=== PATIENT | female | born 1995 | race Caucasian/White ===

== ENCOUNTER 2024-03-14 09:04 | Inpatient (IN) | payer OTHER ==
[2024-03-14 09:54] VITALS: BMI 33.7
[2024-03-14] MEDS: ELECTROLYTE-148 SOLN 1,000 ML IV SCH (10:15)
[2024-03-14 10:38] LABS: BASO % 0.3 % (0-2.0); EOS % 1.4 % (0-4.5); HEMATOCRIT 38.9 % (32.4-45.2); HEMOGLOBIN 13.5 GM/dL (10.7-15.3); MCH 32.3 pg (25.7-33.7); MCHC 34.7 g/dl (32.0-36.0); MEAN CELL VOLUME 93.2 fl (80-96); MEAN PLT VOLUME 9.3 fl (7.5-11.1); MONO % 7.8 % (3.8-10.2); NEUT % 63.5 % (42.8-82.8); PLATELET COUNT 245 10^3/uL (134-434); RBC 4.17 M/mm3 (3.60-5.2); WHITE BLOOD COUNT 9.2 K/mm3 (4.0-10.0)
[2024-03-14 10:53] LABS: INR 0.89 (0.83-1.09); PROTHROMBIN TIME (PATIENT) 10.1 SEC (9.7-13.0)
[2024-03-14 10:55] LABS: ACTIVATED PTT 29.3 SECONDS (25.2-36.5); POTASSIUM 3.9 mmol/L (3.5-5.1)
[2024-03-14 10:56] LABS: CALCIUM 8.9 mg/dL (8.5-10.1)
[2024-03-14 10:57] LABS: BLOOD UREA NITROGEN 11.1 mg/dL (7-18)
[2024-03-14 11:00] LABS: CREATININE 0.4 mg/dL (0.55-1.3)
[2024-03-14] MEDS: MISOPROSTOL 25 MCG TABLET (COMPOUNDED BY PHARMACY) PV ONE ×2 (12:00→16:15)
[2024-03-14] MEDS ORDERED: OXYTOCIN 30 UNITS in 0.9% NS 30 UNIT/500 ML INFUS.BAG IVPB ONE (20:22)
[2024-03-14] MEDS: OXYTOCIN 30 UNITS in 0.9% NS 30 UNIT/500 ML INFUS.BAG IVPB SCH (20:25)
[2024-03-15] MEDS ORDERED: TERBUTALINE SULFATE 1 MG/1 ML VIAL SQ ONE (02:41)
[2024-03-15] MEDS: CITRIC ACID/SODIUM CITRATE 30 ML UNIT-DOSE CUP PO ONE (02:45)
[2024-03-15] MEDS: TERBUTALINE SULFATE 1 MG/1 ML VIAL SQ ONE (02:45)
[2024-03-15] MEDS ORDERED: morphine SULFATE/PF 1 MG/2 ML (2cc Syringe - QUVA) ONE (03:42)
[2024-03-15] MEDS ORDERED: PROPOFOL 20 ML ONE (04:09)
[2024-03-15] MEDS ORDERED: FENTANYL CITRATE/PF 50 MCG/ML VIAL ONE (04:46)
[2024-03-15 04:56] LABS: CORD HCO3 20.8 mmHg (20-29); CORD PCO2 46.4 mmHg (30-78)
[2024-03-15 04:57] LABS: CORD BASE EXCESS -4.3 mmol/L (0-2); CORD HCO3 20.2 mmHg (20-29); CORD PCO2 35.5 mmHg (30-78); CORD pH 7.372 (7.14-7.44)
[2024-03-15] MEDS ORDERED: OXYTOCIN 20 UNITS in 0.9% NS 20 UNIT/1,000 ML INFUS.BAG IV ONE (05:41)
[2024-03-15] MEDS: OXYTOCIN 20 UNITS in 0.9% NS 20 UNIT/1,000 ML INFUS.BAG IV SCH (05:45)
[2024-03-15] MEDS ORDERED: METHYLERGONOVINE MALEATE 0.2 MG/1 ML AMP IM PRN (06:00)
[2024-03-15] MEDS ORDERED: oxyCODONE HCL 5 MG TABLET PO PRN ×2 (18:00)
[2024-03-15] MEDS: ACETAMINOPHEN 1000 MG/100 ML BAG IVPB PRN (18:28)
[2024-03-15] MEDS: IBUPROFEN 600 MG TABLET (FP) PO PRN (22:41)
[2024-03-15] MEDS: SIMETHICONE 80 MG TAB.CHEW (FP) PO PRN (22:41)
[2024-03-16] MEDS ORDERED: BISACODYL 10 MG SUPP.RECT RC PRN (06:00)
[2024-03-16 08:30] LABS: BASO % 0.3 % (0-2.0); EOS % 0.5 % (0-4.5); HEMATOCRIT 33.1 % (32.4-45.2); HEMOGLOBIN 11.3 GM/dL (10.7-15.3); LYMPH % 17.5 % (8-40); MCH 32.3 pg (25.7-33.7); MCHC 34.1 g/dl (32.0-36.0); MEAN CELL VOLUME 94.9 fl (80-96); MEAN PLT VOLUME 8.4 fl (7.5-11.1); MONO % 6.8 % (3.8-10.2); NEUT % 74.9 % (42.8-82.8); PLATELET COUNT 231 10^3/uL (134-434); RBC 3.48 M/mm3 (3.60-5.2); RDW 13.9 % (11.6-15.6); WHITE BLOOD COUNT 11.8 K/mm3 (4.0-10.0)
[2024-03-16] MEDS: ACETAMINOPHEN 325 MG TABLET (FP) PO PRN (14:08)
[2024-03-16] MEDS: SENNOSIDES/DOCUSATE COMBO (SENNA PLUS) TABLET (UD) PO PRN (22:27)
[2024-03-17 10:29] VITALS: RESP 18
[2024-03-18 07:24] LABS: BASO % 0.6 % (0-2.0); EOS % 3.6 % (0-4.5); HEMOGLOBIN 9.7 GM/dL (10.7-15.3); LYMPH % 33.7 % (8-40); MCH 32.7 pg (25.7-33.7); MCHC 34.5 g/dl (32.0-36.0); MEAN PLT VOLUME 8.6 fl (7.5-11.1); MONO % 6.3 % (3.8-10.2); NEUT % 55.8 % (42.8-82.8); PLATELET COUNT 257 10^3/uL (134-434); RBC 2.95 M/mm3 (3.60-5.2); RDW 13.8 % (11.6-15.6); WHITE BLOOD COUNT 8.1 K/mm3 (4.0-10.0)
[2024-03-18 11:11] VITALS: BP 115/63; PULSE 76; TEMP 98.3
== END 2024-03-18 14:00 | disposition home or self-care (01) | DRG 540 ==
LOC: JLDR 09:04 → J3W 03-15 08:05
PROVIDERS: ADMIT Obstetrics & Gynecology Obstetrics; ATTEND Obstetrics & Gynecology Obstetrics
PROC: 10D00Z1 Extraction of Products of Conception, Low, Open Approach (ICD-10-PCS; principal; 2024-03-15)
DX: O48.0 Post-term pregnancy (principal); O36.8330 Maternal care for abnormalities of the fetal heart rate or rhythm, third trimester, not applicable or unspecified; Z3A.41 41 weeks gestation of pregnancy; Z37.0 Single live birth
CPT/HCPCS: 36415; 36600; 80048; 82803; 85025; 85610; 85730; 86780; 86850; 86900; 86901; 88307-TC; J0131